=== PATIENT | female | born 2000 | race Caucasian/White ===

== ENCOUNTER 2024-01-27 12:47 | Emergency (ER) | payer OTHER ==
[~2024-01-27] VITALS: Ht 160 cm; Wt 56.3 kg
[2024-01-27 12:47] VITALS: TEMP 97.4
[2024-01-27] MEDS ORDERED: HOME MED LIST COMPLETE! XX SCH (14:30)
[2024-01-27 15:32] VITALS: BP 125/80; O2SAT 98
== END 2024-01-27 15:30 | disposition home or self-care (01) ==
LOC: M ED 12:47
DX: F32.A Depression, unspecified (principal); Z88.0 Allergy status to penicillin